=== PATIENT | female | born 1990 | race Caucasian/White ===

== ENCOUNTER 2017-09-17 09:30 | Outpatient (CLI) | payer OTHER ==
[~2017-09-17] VITALS: Ht 160 cm; Wt 65.0 kg
[2017-09-17 09:48] VITALS: BP 121/81
[2017-09-17] MEDS ORDERED: PRENTAB9 PO (10:26)
[2017-09-17 11:12] VITALS: BP 123/80
[2017-09-17 12:45] VITALS: BP 108/64
== END 2017-09-17 12:57 | disposition home or self-care (01) ==
LOC: M LDO 09:30
PROVIDERS: ATTEND Obstetrics & Gynecology
DX: O47.03 False labor before 37 completed weeks of gestation, third trimester (principal); Z3A.34 34 weeks gestation of pregnancy

== ENCOUNTER 2017-10-15 16:47 | Outpatient (CLI) | payer OTHER ==
[~2017-10-15] VITALS: Ht 157.5 cm; Wt 69.6 kg
[~2017-10-15 16:47] MED LIST: PRENTAB9 PO
[2017-10-15 17:01] VITALS: BP 118/80
[2017-10-15 18:37] VITALS: BP 116/83
[2017-10-15 19:22] VITALS: BP 119/80
--- NOTE | 2017-10-15 20:28 | IPNPDOC ---
Text Note Date of Service The patient was seen on 10/15/17. NOTE Shelia is a 27yo with SIUP at 38w1d who presents with contractions. She states she has been primitivo for 3 days, but her contractions are more "annoying" now. No LOF. No VB. Feels good movement. course significant for hx of prior for cord prolapse with RLTCS scheduled Sep. A neg MBT, received rhogam 08/09/17. Pt is CF trait pos, FOB is neg. Vitals wnl. 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 Cervix unchanged at 3/80/-2 over 2 hours having ctx q3-7min. Reassuring status. Plan: -Keep routine OB appt 10/17 -Labor precautions discussed -Safe for discharge Dr. Yanique Pinedo MD [facility] VS,Fishbone, I+O VS, Fishbone, I+O Vital Signs Date Time Temp Pulse Resp B/P (MAP) Pulse Ox O2 Delivery O2 Flow Rate FiO2 10/15/17 18:37 96 116/83 (94) 10/15/17 16:59 98.3 20 Yanique Pinedo MD Oct 15, 2017 20:28
[2017-10-17] MEDS ORDERED: ACET1TAB17 PO (10:00)
[2017-10-17] MEDS ORDERED: BENA25CA4 PO (10:00)
== END 2017-10-15 20:25 | disposition home or self-care (01) ==
LOC: M LDO 16:47
PROVIDERS: ATTEND Obstetrics & Gynecology
DX: O47.1 False labor at or after 37 completed weeks of gestation (principal); Z3A.38 38 weeks gestation of pregnancy; Z88.8 Allergy status to other drugs, medicaments and biological substances; Z88.0 Allergy status to penicillin; Z91.040 Latex allergy status

== ENCOUNTER 2017-10-22 11:30 | Inpatient (IN) | payer OTHER ==
[2017-10-22] VITALS (7 sets, daily range): BP systolic 113–127; BP diastolic 73–84
[~2017-10-22] VITALS: Ht 157.5 cm; Wt 69.4 kg
[~2017-10-22 11:30] MED LIST changes: +ACET1TAB17 PO; +BENA25CA4 PO
[2017-10-22] MEDS ORDERED: LACTATED RINGER'S 1000 ML IV STA (12:03)
[2017-10-22] MEDS ORDERED: LR 1,000 ML IV SCH (12:03)
--- NOTE | 2017-10-22 12:17 | HPEPDOC ---
Obstetrical History & Physical General Date of Admission Oct 22, 2017 at 11:57 History of Present Illness 27 y/p at 39+1 for reg painful ctx's several hours. No LOF/VB. Pos FM. Prob list Prior h/o section in 2013 for emergent cord prolapse, low transverse uterine incision confirmed with prior documentation A neg, received Rhogam in SEP CF pos, husb is neg Chief Complaint: Contractions, term Information Provided By: Patient Care Care: Good Care Dating Final EDC by: 1st trimester (US) (10 wk US) Past Medical History Past Obstetrical History : Past Obstetrical History: Multigravida Type of Delivery: Ceserean section (2013. Ectopic 2009 and SAB's in and ) Complications: Yes (cord prolapse) Past Medical History Medical History mild allergies, seasonal asthma, no meds this Surgical History: section Family History Significant Family History: No pertinent family hx Social History Social history neg Marital Status: Family situation: Spouse/partner home Psychosocial History: No pertinent psych hx * Smoker: non-smoker Alcohol: Denies Drugs: denies Abuse Violence Screening Have you been hit/kicked/slapp: No Have you been sexually assault: No Imunizations Tdap status: current Influenza Status: current Allergies Coded Allergies: Acetaminophen (Verified Allergy, Intermediate, PT STATES SHE GETS HIVES, 10/15/17) Latex (Verified Allergy, Intermediate, PT STATES SHE GETS HIVES, 10/15/17) Penicillins (Verified Allergy, Intermediate, hives, 10/17/17) Ephedrine (Verified Allergy, Unknown, 10/15/17) Medications Scheduled Diphenhydramine HCl (Benadryl Allergy) 25 Mg Cap, 25 MG PO PRN with acetaminophen Multivitamins/ ( 27-0.8 mg) 1 Tab Tab, 1 TAB PO DAILY Scheduled PRN Acetaminophen (Acetaminophen) 325 Mg Tab, 325 MG PO PRN PRN for PAIN Physical Examination Physical Examination GENERAL: Alert and oriented times three. ABDOMEN: Gravid and non-tender to touch. FETUS: Is vertex (VTX) by sterile vaginal examination (SVE), Cx 5-6/90/-1/vtx well applied EXTREMITIES: No edema. Vital Signs/I&O Vital Signs Date Time Temp Pulse Resp B/P (MAP) Pulse Ox O2 Delivery O2 Flow Rate FiO2 10/22/17 11:49 98.6 98 18 122/82 (95) Laboratory Data Urine Culture: Contaminated Pertinent Laboratoy Data Blood Type: A- RBC Antibody Screen: Negative HIV: Negative Hepatitis B: Negative Hepatitis C: Unknown Rapid Plasma Reagin: Nonreactive Rubella: Immune Varicella: Immune Chlamydia/Gonorrhea: Negative Group B Streptococcus: Negative Quad Screen Test: Negative (MSAFP neg) Cystic Fibrosis: Positive (husb is neg) Glucose Tolerance Test: 69 Anatomy Ultrasound Placenta Location: Posterior Normal Anatomy: Yes (other than single echogenic focus) Placenta Previa: No Assessment Variability: Moderate Accelerations: Positive Decelerations: None Tocometer Contractions: Yes Frequency: regular Duration: greater than 60 seconds Strength: palpated as moderate Assessment/Plan Assessment Active labor. TOLAC. Anesthesia contacted (Dr Mcdonnell) and they will be in house, will be communicated to Dr Byrd at 1530. Plan Admit and orient. Adapted Physical Education Specialist and consent. Diet: clrs Group B Streptococcus (GBS) neg Labs and intravenous (IV) per unit protocol. Counseled on Pitocin and augmentation of labor (IOL) prn. Lactated Ringers (LR): Bolus 1000 mL, then at 125 mL/hr. Anticipate C-S as appropriate. Sessions SESSIONS,NICHOLE Solis MD Oct 22, 2017 12:17
[2017-10-22 12:30] LABS: MEAN CORPUSCULAR HEMOGLOBIN 28.3 pg (27.0-33.0); MEAN CORPUSCULAR HGB CONC 33.4 g/dl (32.0-36.5); MEAN CORPUSCULAR VOLUME 84.7 fl (80.0-96.0); PLATELET COUNT, AUTOMATED 273 10^3/uL (150-450); RED CELL DISTRIBUTION WIDTH 13.6 % (11.5-14.5); WHITE BLOOD COUNT 12.8 10^3/uL (4.0-10.0)
[2017-10-22] MEDS ORDERED: OXYTOCIN 30 UNITS IN 0.9% NaCl 500ML IV BAG (J2590) As Ordered ONE (13:01)
[2017-10-22] MEDS ORDERED: OXYTOCIN DRIP 30 UNITS in APPROPRIATE DILUENT 1 EA IV SCH (13:20)
[2017-10-22] MEDS ORDERED: DIBUCAINE 1% OINTMENT 30GM TOP PRN (13:30)
[2017-10-22] MEDS ORDERED: IBUPROFEN 800 MG TAB PO PRN (13:30)
[2017-10-22] MEDS ORDERED: RHOGAM 300 MCG (1500 IU) INJ (J2790) IM SCH (13:30)
[2017-10-22] MEDS ORDERED: METOCLOPRAMIDE INJ 10MG/2ML VIAL (J2765) IV PRN (13:30)
[2017-10-22] MEDS ORDERED: MEASLES,MUMPS,RUBELLA VACCINE INJ (MMR-II) (90707) SC SCH (13:30)
--- NOTE | 2017-10-22 13:34 | DNPDOC ---
[facility] Delivery Note Delivery Note DATE OF DELIVERY: [id number] at 1302 PREDELIVERY DIAGNOSIS: 39 1/7 weeks' gestation and labor. POST DELIVERY DIAGNOSIS: Delivered. PROCEDURE: successful POLISH MAKER: Dr. Tyler ANESTHESIA: natural ESTIMATED BLOOD LOSS: 200 mL. FINDINGS: Score 9/9, weight 2990 gm, 6 lb 9 oz DELIVERY SUMMARY: Called to room for SROM and urge to push, fully dilated. Progressed quickly and pushed well. no delay of the vtx or ant/post shoulders. To abd. Infant in good shape. Cord C/C. Cord blood. Placenta intact with slight traction and uterine massage. Small inner left labia minora lac, not bleeding. 1st degr perineal lac repaired with 3-0 vicryl after 6 cc's 1% lido bath. Good cosmesis/hemostasis. Inner labial lac examined again and hemostatic. Sessions MD TYLER,NICHOLE Solis MD Oct 22, 2017 13:34
[2017-10-22] MEDS ORDERED: LIDOCAINE 1% MDV INJ 50 ML VIAL INFIL ONE (14:00)
[2017-10-22] MEDS: DOCUSATE SODIUM 100 MG CAP PO SCH (19:47)
[2017-10-23 06:19] VITALS: BP 104/56
--- NOTE | 2017-10-23 07:30 | IPNPDOC ---
Text Note Date of Service The patient was seen on 10/23/17. NOTE PPD1 prog note States feeling well, no complaints. No heavy VB. Pain controlled. Voiding, ambulatory. Bonding well and breast feeding well. VSSAF CTAB RRR Ut at U-2, firm Ext no CCE a/p: Doing well. routine pp care. D/C today, if baby not released, to boarding. Sessions Barbara HILTON, I+O VSBarbara I+O Laboratory Tests 10/22/17 12:10 Red Blood Count 4.63, Mean Corpuscular Volume 84.7, Mean Corpuscular Hemoglobin 28.3, Mean Corpuscular Hemoglobin Concent 33.4, Red Cell Distribution Width 13.6 Vital Signs Date Time Temp Pulse Resp B/P (MAP) Pulse Ox O2 Delivery O2 Flow Rate FiO2 10/23/17 06:19 98.2 88 16 104/56 (72) SESSIONS,NICHOLE Solis MD Oct 23, 2017 07:30
--- NOTE | 2017-10-23 07:41 | DS.PDOC ---
Discharge Summary General Date of Admission Oct 22, 2017 at 11:57 Date of Discharge [id number] Discharge Summary Discharge Summary Admission Diagnosis: active labor at term Discharge Diagnosis: s/p vaginal after Condition: stable Meds on discharge: Raquel Wade Colace Hospital Course: Pt is a 27 yo admitted in active labor at term. The pt progressed to well through labor and had an uncomplicated . Please see delivery note for details. On PPD#1, the pt had normal VS, the pt was tolerating reg diet, ambulating, pain was well controlled, minimal lochia. She was desirous of discharge and was discharged with follow up in 6-8wks in OB clinic. Eventual Nexplanon for contraception. Home recommendations: Nothing in vagina for 6 weeks Vital Signs/I&Os Vital Signs Date Time Temp Pulse Resp B/P (MAP) Pulse Ox O2 Delivery O2 Flow Rate FiO2 10/23/17 06:19 98.2 88 16 104/56 (72) Laboratory Data Labs 24H Laboratory Tests 2 10/22/17 12:10: Nucleated Red Blood Cells % (auto) 0.0, Urine Amphetamines Screen NEGATIVE, Urine Benzodiazepines Screen NEGATIVE, Urine Opiates Screen NEGATIVE, Urine Methadone Screen NEGATIVE, Urine Barbiturates Screen NEGATIVE, Urine Phencyclidine Screen NEGATIVE, Urine Cocaine Metabolite Screen NEGATIVE, Urine Cannabinoids Screen NEGATIVE, Syphilis Serology NONREACTIVE 10/22/17 13:18: Serology Scanned Report Hepatitis B Testing CBC/BMP Laboratory Tests 10/22/17 12:10 Red Blood Count 4.63, Mean Corpuscular Volume 84.7, Mean Corpuscular Hemoglobin 28.3, Mean Corpuscular Hemoglobin Concent 33.4, Red Cell Distribution Width 13.6 Discharge Medications Scheduled Diphenhydramine HCl (Benadryl Allergy) 25 Mg Cap, 25 MG PO PRN, (Reported) with acetaminophen Multivitamins/ ( 27-0.8 mg) 1 Tab Tab, 1 TAB PO DAILY, (Reported ) Scheduled PRN Acetaminophen (Acetaminophen) 325 Mg Tab, 325 MG PO PRN PRN for PAIN, (Reported) Allergies Coded Allergies: Acetaminophen (Verified Allergy, Intermediate, PT STATES SHE GETS HIVES, 10/15/17) Latex (Verified Allergy, Intermediate, PT STATES SHE GETS HIVES, 10/15/17) Penicillins (Verified Allergy, Intermediate, hives, 10/17/17) Ephedrine (Verified Allergy, Unknown, 10/15/17) SESSIONS,NICHOLE Solis MD Oct 23, 2017 07:41
[2017-10-23] MEDS: DOCUSATE SODIUM 100 MG CAP PO SCH (07:59)
[2017-10-23] MEDS ORDERED: PRENATAL VITAMINS CHEWABLE TABLET PO SCH (09:00)
[2017-10-23] MEDS ORDERED: COLA100C5 PO (10:37)
[2017-10-23] MEDS ORDERED: IBUP-1114 PO (10:37)
== END 2017-10-23 12:15 | disposition home or self-care (01) | DRG 775 ==
LOC: M LDO 11:30 → M LDI 11:57 → M OBS 15:15
PROVIDERS: ADMIT Obstetrics & Gynecology; ATTEND Obstetrics & Gynecology
PROC: 10E0XZZ Delivery of Products of Conception, External Approach (ICD-10-PCS; principal; 2017-10-22)
PROC: 0HQ9XZZ Repair Perineum Skin, External Approach (ICD-10-PCS; 2017-10-22)
DX: O34.211 Maternal care for low transverse scar from previous cesarean delivery (principal); Z3A.39 39 weeks gestation of pregnancy; O62.3 Precipitate labor; O70.0 First degree perineal laceration during delivery; Z37.0 Single live birth